=== PATIENT | female | born 1995 | race Caucasian/White ===

== ENCOUNTER 2017-07-12 15:32 | Emergency (ER) | payer BC ==
--- NOTE | 2017-07-12 16:17 | EDM.PDOC ---
ED HPI GENERAL MEDICAL PROBLEM - General Chief Complaint: ENT Problem Stated Complaint: TOOTH PAIN/JAW Time Seen by Provider: 07/12/17 16:10 Source of Information: Reports: Patient History Limitations: Reports: No Limitations - History of Present Illness INITIAL COMMENTS - FREE TEXT/NARRATIVE: HISTORY AND PHYSICAL: History of present illness: [Patient comes to the emergency room complaining of pain over her left posterior lower gum area-the area where she previously had a with some tooth extracted. Has been present for the past couple of days and is gradually worsening. She is moving back to [place] by car on Monday and does not have a local dentist. She is concerned that she may be developing an abscess and does not want to travel if she indeed has an infection. No fever or chills. No neck swelling or discomfort. She has no other complaints or concerns. Had both lower and one upper wisdom tooth removed within the past 6-12 months.] Review of systems: As per history of present illness and below otherwise all systems reviewed and negative. Past medical history: As per history of present illness and as reviewed below otherwise noncontributory. Surgical history: As per history of present illness and as reviewed below otherwise noncontributory. Social history: No reported history of drug or alcohol abuse. Family history: As per history of present illness and as reviewed below otherwise noncontributory. Physical exam: HEENT: Atraumatic, normocephalic. Left lower posterior gum tissue appears swollen and inflamed. Mild erythema. No drainage. Neck is supple. there is no lymphadenopathy. Lungs: Clear to auscultation, breath sounds equal bilaterally. Heart: S1S2, regular rate and rhythm. Therapeutics: [Dental balls] Impression: [Dental pain] Plan: [Rx written for cephalexin 500 mg #30 sig 1 by mouth 3 times a day 0 refills. Dental balls given in the ER. Recommend [id number] anti-inflammatories and analgesics as needed for discomfort. Follow-up with her dentist as soon as she returns home. She is in agreement with today's plan and verbalizes understanding.] Definitive disposition and diagnosis as appropriate pending reevaluation and review of above. Left Lower Tooth/Teeth Pain Score (Numeric/FACES): 6 - Related Data Allergies Allergy/AdvReac Type Severity Reaction Status Date / Time Penicillins Allergy Hives Verified 07/12/17 15:41 Home Meds: Home Meds Levonorgestrel-Ethin Estradiol [Larissia-28 Tablet] 1 tab PO DAILY 07/12/17 [ History] Past Medical History - Past Health History Medical/Surgical History: Denies Medical/Surgical History - Infectious Disease History Infectious Disease History: Reports: Chicken Pox Social & Family History - Family History Family Medical History: Noncontributory - Tobacco Use Smoking Status *Q: Former Smoker Used Tobacco, but Quit: Yes Month Tobacco Last Used: 3 months - Recreational Drug Use Recreational Drug Use: No ED ROS ENT - Review of Systems Review Of Systems: ROS reveals no pertinent complaints other than HPI. ED EXAM, ENT - Physical Exam Exam: See Below Course - Vital Signs Last Recorded V/S: Last Vital Signs Temp 98.1 F 07/12/17 15:39 Pulse 102 H 07/12/17 16:37 Resp 16 07/12/17 16:37 BP 132/59 L 07/12/17 16:37 Pulse Ox 96 07/12/17 16:37 - Orders/Labs/Meds Meds: Medications Discontinued Medications Generic Name Dose Route Start Last Admin Trade Name Ebony PRN Reason Stop Dose Admin Benzocaine 2 each 07/12/17 16:21 07/12/17 16:37 Hurricaine One 20% MUCMEM 07/12/17 16:22 2 each ONETIME ONE Administration Lidocaine HCl 15 ml 07/12/17 16:21 07/12/17 16:37 Xylocaine 2% Viscous PO 07/12/17 16:22 15 ml ONETIME ONE Administration Departure - Departure Time of Disposition: 16:20 Disposition: Home, Self-Care 01 Condition: Good Clinical Impression: Pain, dental - Discharge Information Instructions: Dental Abscess, [id number] Referrals: PCP,None [Primary Care Provider] - Forms: ED Department Discharge Additional Instructions: The following information is given to patients seen in the emergency department who are being discharged to home. This information is to outline your options for follow-up care. We provide all patients seen in our emergency department with a follow-up referral. The need for follow-up, as well as the timing and circumstances, are variable depending upon the specifics of your emergency department visit. If you don't have a primary care physician on staff, we will provide you with a referral. We always advise you to contact your personal physician following an emergency department visit to inform them of the circumstance of the visit and for follow-up with them and/or the need for any referrals to a consulting specialist. The emergency department will also refer you to a specialist when appropriate. This referral assures that you have the opportunity for follow-up care with a specialist. All of these measure are taken in an effort to provide you with optimal care, which includes your follow-up. Under all circumstances we always encourage you to contact your private physician who remains a resource for coordinating your care. When calling for follow-up care, please make the office aware that this follow-up is from your recent emergency room visit. If for any reason you are refused follow-up, please contact the [facility] emergency department at and asked to speak to the emergency department charge nurse. Establish care with a dentist as soon as you return to [place]. Tylenol alternating with ibuprofen as needed for discomfort. Return to ER as needed as discussed.
[2017-07-12] MEDS ORDERED: Benzocaine 20% Topical Spray UD MUCMEM ONE (16:21)
[2017-07-12] MEDS ORDERED: Lidocaine 2% Viscous Solution 15 ML Cup PO ONE (16:21)
== END 2017-07-12 16:40 | disposition home or self-care (01) ==
LOC: MW.ED 15:32
DX: K08.89 Other specified disorders of teeth and supporting structures (principal); Z87.891 Personal history of nicotine dependence; Z88.0 Allergy status to penicillin
CPT/HCPCS: 99282; A9270